=== PATIENT | male | born 1965 | race Caucasian/White ===

== ENCOUNTER → 2016-05-06 | Outpatient (CLI) | payer OTHER ==
[~2016-05-06] MED LIST: ALL DAY ALLERGY10 M3 PO; AMBIEN PO; BUSPAR15 M2 PO; CLONAZEPAM0.5 MG PO; DEMEROL INJ; DULOXETINE HCL60 MG PO; EFFEXOR XR75 MG PO; FISH OIL 1,0001 CAP PO; FLOMAX0.4 M1 PO; HYDROCODON-ACE1 EAC7 PO; LIPITOR40 MG PO; METHADONE HCL10 MG PO; NEURONTIN PO; NIASPAN PO; TOPIRAMATE100 MG PO; TYLOX1 CAP 5/50 PO; VIIBRYD20 MG PO; VITAMIN E400 UNI2 PO; ZYRTEC PO; ZYRTEC10 M2 PO
[2016-05-06 11:03] LABS: BASOPHIL# 0.1 X10e3 (0-0.3); BASOPHIL% 1.4 % (0-2.5); EOSINOPHIL# 0.1 X10e3 (0-0.7); EOSINOPHIL% 3.6 % (0.0-7.0); HEMATOCRIT 41.6 % (38.0-50.0); HEMOGLOBIN 13.7 gm/dL (13.0-16.0); LYMPHOCYTE# 2.3 X10e3 (1.0-3.5); LYMPHOCYTE% 57.6 % (17.0-45.0); MEAN CORPUSCULAR HEMOGLOBIN 30.2 PG (28-34); MEAN CORPUSCULAR HGB CONC 32.8 g/dL (30-36); MEAN PLATELET VOLUME 7.4 FL (6.5-11.5); MONOCYTE# 0.4 X10e3 (0-1.0); MONOCYTE% 10.1 % (3.0-12.0); NEUTROPHIL# 1.1 X10e3 (1.5-7.1); NEUTROPHIL% 27.3 % (40-75); PLATELET COUNT 180 X10e3 (140-420); RED BLOOD COUNT 4.53 X10e (3.90-5.60); RED CELL DISTRIBUTION WIDTH 13.6 % (11.0-15.5)
[2016-05-06 11:04] LABS: DIFF IND YES
[2016-05-06 11:16] LABS: PLATELET ESTIMATE NORMAL (NORMAL); RBC NORMAL YES
== END | disposition home or self-care (01) ==
LOC: CLAB 10:14
PROVIDERS: Internal Medicine Gastroenterology
DX: E83.119 Hemochromatosis, unspecified (principal)
CPT/HCPCS: 36415; 82728; 85025

== ENCOUNTER → 2016-05-25 | Outpatient (CLI) | payer OTHER ==
[2016-05-25 11:58] LABS: HEMATOCRIT 41.5 % (38.0-50.0); HEMOGLOBIN 13.5 gm/dL (13.0-16.0)
== END | disposition home or self-care (01) ==
LOC: CSSDAY 11:26
PROVIDERS: Nurse Practitioner
DX: E83.119 Hemochromatosis, unspecified (principal)
CPT/HCPCS: 36415; 85014; 85018; 99195; G0463

== ENCOUNTER → 2016-06-08 | Outpatient (CLI) | payer OTHER ==
[2016-06-08 16:54] LABS: BASOPHIL# 0.1 X10e3 (0-0.3); BASOPHIL% 1.4 % (0-2.5); EOSINOPHIL# 0.1 X10e3 (0-0.7); EOSINOPHIL% 2.4 % (0.0-7.0); HEMATOCRIT 39.5 % (38.0-50.0); HEMOGLOBIN 12.8 gm/dL (13.0-16.0); LYMPHOCYTE% 49.6 % (17.0-45.0); MEAN CORPUSCULAR HEMOGLOBIN 30.5 PG (28-34); MEAN CORPUSCULAR HGB CONC 32.3 g/dL (30-36); MEAN PLATELET VOLUME 8.5 FL (6.5-11.5); MONOCYTE# 0.4 X10e3 (0-1.0); MONOCYTE% 10.3 % (3.0-12.0); NEUTROPHIL# 1.4 X10e3 (1.5-7.1); NEUTROPHIL% 36.3 % (40-75); PLATELET COUNT 194 X10e3 (140-420); RED BLOOD COUNT 4.19 X10e (3.90-5.60); RED CELL DISTRIBUTION WIDTH 14.1 % (11.0-15.5)
[2016-06-08 17:08] LABS: MEAN CELL VOLUME 94.2 FL (83-96)
[2016-06-08 17:09] LABS: DIFF IND NO
[2016-06-08 17:15] LABS: ALBUMIN SERUM 4.4 g/dL (3.5-5.0); BILIRUBIN,TOTAL 0.3 mg/dL (0.2-2.0); BUN/CREATININE RATIO 13.33; CALCIUM SERUM 9.3 mg/dL (8.4-10.2); CREATININE SERUM 1.2 mg/dL (0.6-1.4); GLOM FILT RATE Estimated 69.6 mL/min (>60); POTASSIUM 4.2 mmol/L (3.5-5.1); PROTEIN TOTAL SERUM 7.3 g/dL (6.0-8.3)
== END | disposition home or self-care (01) ==
LOC: CSSDAY 11:02
PROVIDERS: Nurse Practitioner
DX: E83.119 Hemochromatosis, unspecified (principal)
CPT/HCPCS: 36415; 80053; 82728; 85025; 85027; 99195; G0463

== ENCOUNTER 2016-10-17 12:54 | Emergency (ER) | payer OTHER ==
[~2016-10-17] VITALS: Ht 182.9 cm; Wt 109.8 kg
--- NOTE | ~2016-10-17 | CT4 ---
[facility] A Service of [facility] & [facility] RADIOLOGY TEXT RESULTS PATIENT: WILFRIDO MCINTOSH LOCATION: [facility] : 63 UNIT #: [id number] AGE: [address]: Bruno Bolaños DO SEX: M ORDER DR: [id number] [facility] [address] [place], [place] [address] [id number] MR#: [id number] #: [id number] NAME: WILFRIDO MCINTOSH : 1965 SEX: M STUDY DATE/TIME: 10/17/2016 14:25 UNIT: [facility] ROOM: STUDY DESCRIPTION: CT Abd and Pelv Wo Cont Attending Physician: Bruno Bolaños D.O. Ordering Physician: Bruno Bolaños D.O. Primary Care Physician: Hilda Arango M.D. MEDICAL IMAGING REPORT This report is preliminary unless electronic signature is present EXAM CT abdomen and pelvis without contrast 10/17/2016 HISTORY Right flank pain since 10/14/2016. Prior history of stones. TECHNIQUE CT abdomen and pelvis performed. Bone and soft tissue windows are reviewed. This CT exam was performed with one or more of the following radiation dose reduction techniques: automatic exposure control, adjustment of mA and/or kV according to patient size, and iterative reconstruction. COMPARISON STUDIES 11/19/2016. FINDINGS Lung bases are clear. Inferior heart and pericardium unremarkable. Diffuse fatty infiltration of the liver. New compared to 2009. There is some sparing along the gallbladder fossa. No clearly suspicious focal hepatic parenchymal abnormality. The gallbladder is unremarkable. Spleen, pancreas, adrenal glands unremarkable. Possible punctate non-obstructing calculus mid- to upper pole left kidney. There is a punctate non-obstructing calculus in the lower pole of the left kidney. There is no hydronephrosis, hydroureter or ureteral calculus and no secondary sign of recent left side stone passage. On the right, no definite renal calculus is seen. No hydronephrosis, hydroureter, perinephric or periureteral inflammatory change. No bladder calculus. CT PELVIS: Small left inguinal hernia containing only fat without complication. Stable appearance. No inguinal adenopathy. The urinary STS. [facility] A Service of [facility] & [facility] RADIOLOGY TEXT RESULTS PATIENT: WILFRIDO MCINTOSH [facility] #: [id number] : 63 UNIT #: [id number] AGE: [address]: Bruno Bolaños DO SEX: M ORDER DR: bladder is unremarkable. There is no free fluid in the pelvis. There is no pelvic or retroperitoneal adenopathy. Distal esophagus, stomach, small bowel unremarkable. Appendix normal. Colon shows minimal uncomplicated sigmoid diverticulosis. Atherosclerotic arterial calcifications. No aneurysm. Bony structures show mild degenerative change in the spine. No clearly acute bony abnormality. IMPRESSION 1. No clearly acute abnormality is seen in the abdomen or pelvis. There are tiny punctate non-obstructing left renal calculi. No right renal calculi. No hydronephrosis, hydroureter, or secondary sign of recent stone passage. No perinephric inflammatory change. 2. Compared to 2010, there is diffuse fatty infiltration of the liver with some focal sparing along the gallbladder fossa. No focal suspicious parenchymal abnormality. 3. Gallbladder, pancreas, appendix normal. Remainder of alimentary canal notable only for uncomplicated sigmoid diverticulosis. 4. Remainder of incidental findings in body of report above. Dictated by... Law Sommer M.D. THIS IS AN ELECTRONICALLY VERIFIED REPORT Law Sommer M.D. at 10/19/2016 5:03 PM Kia TD: 10/18/2016 13:10 JOB #: [id number] MEDICAL IMAGING REPORT Page 1 of 1 COPY
[2016-10-17 14:53] LABS: URINE SOURCE CLEAN CATCH
[2016-10-17 14:57] LABS: URINE APPEARANCE CLEAR; URINE BILIRUBIN NEG (NEG); URINE BLOOD NEG (NEG); URINE COLOR YELLOW; URINE GLUCOSE NEG (NEG); URINE KETONE NEG (NEG); URINE LEUKOCYTE ESTERASE NEG (NEG); URINE NITRATE NEG (NEG); URINE PH 6.5 (5-8); URINE PROTEIN NEG (NEG); URINE SPECIFIC GRAVITY 1.018 (1.003-1.035); URINE UROBILINOGEN 0.2 MG/DL (NEG)
[2016-10-17 14:57] LABS: BASOPHIL# 0.1 X10e3 (0-0.3); BASOPHIL% 1.7 % (0-2.5); EOSINOPHIL# 0.1 X10e3 (0-0.7); EOSINOPHIL% 3.6 % (0.0-7.0); HEMATOCRIT 41.1 % (38.0-50.0); HEMOGLOBIN 13.5 gm/dL (13.0-16.0); LYMPHOCYTE% 51.9 % (17.0-45.0); MEAN CELL VOLUME 89.9 FL (83-96); MEAN CORPUSCULAR HEMOGLOBIN 29.4 PG (28-34); MEAN CORPUSCULAR HGB CONC 32.8 g/dL (30-36); MONOCYTE# 0.4 X10e3 (0-1.0); MONOCYTE% 11.7 % (3.0-12.0); NEUTROPHIL# 1.2 X10e3 (1.5-7.1); NEUTROPHIL% 31.1 % (40-75); PLATELET COUNT 199 X10e3 (140-420); RED BLOOD COUNT 4.57 X10e (3.90-5.60); WHITE BLOOD COUNT 3.8 X10e3 (4.0-10.5)
[2016-10-17 15:08] LABS: DIFF IND YES
[2016-10-17 15:09] LABS: CULTURE INDICATED? NO
[2016-10-17 15:10] LABS: ALBUMIN SERUM 4.3 g/dL (3.5-5.0); BILIRUBIN, DIRECT 0.1 mg/dL (0.0-0.2); BILIRUBIN,INDIRECT 0.5 mg/dL (0.0-0.9); BILIRUBIN,TOTAL 0.6 mg/dL (0.2-2.0); CALCIUM SERUM 9.3 mg/dL (8.4-10.2); CREATININE SERUM 1.2 mg/dL (0.6-1.4); GLOM FILT RATE Estimated 69.1 mL/min (>60); POTASSIUM 3.9 mmol/L (3.5-5.1); PROTEIN TOTAL SERUM 7.9 g/dL (6.0-8.3)
[2016-10-17 15:25] LABS: ANISOCYTOSIS MOD; PLATELET ESTIMATE NORMAL (NORMAL); POIKILOCYTOSIS SL
== END 2016-10-17 15:50 | disposition home or self-care (01) ==
LOC: CED 12:54
PROVIDERS: Emergency Medicine
DX: R10.9 Unspecified abdominal pain (principal); M54.9 Dorsalgia, unspecified; G89.29 Other chronic pain; Z98.890 Other specified postprocedural states; Z88.0 Allergy status to penicillin; Z88.8 Allergy status to other drugs, medicaments and biological substances
CPT/HCPCS: 36415; 74176; 80048; 80076; 81003; 83690; 85025; 96374; 96375; 99284; J1170; J2405